=== PATIENT | female | born 1960 | race African-American/Black ===

== ENCOUNTER → 2016-09-01 | Outpatient (CLI) | payer OTHER ==
[~2016-09-01] MED LIST: AMLODIPINE BESYL5 MG PO; AZELASTINE137 MCG/0.; CELEBREX PO; CYMBALTA PO; DULOXETINE HCL60 M1 PO; ESOMEPRAZOLE MA40 MG PO; HYDROCHLOROTH12.5 MG PO; LORTAB 7.5-3251 EACH PO; MELOXICAM15 MG PO; NASACORT AQ16.5 GM; PARAFON FORTE500 M1 PO; PREVACID PO
--- NOTE | ~2016-09-01 | BD1 ---
[facility] A Service of [facility] RADIOLOGY TEXT RESULTS PATIENT: BEBETO HAIDER LOCATION: [facility] : 62 UNIT #: [id number] AGE: [address]: Sary Paige APRN SEX: F ORDER DR: [id number] [address] [id number] O MR#: [id number] Acc #: [id number] NAME: BEBETO HAIDER : 1960 SEX: F STUDY DATE/TIME: 09/01/2016 8:14 UNIT: [facility] ROOM: STUDY DESCRIPTION: Dexa Bone Dens 1+ Site Attending Physician: Sary Paige A.P.R.N. Referring Physician: Sary Paige A.P.R.N. Ordering Physician: Sary Paige A.P.R.N. Primary Care Physician: Sary Paige A.P.R.N. MEDICAL IMAGING REPORT This report is preliminary unless electronic signature is present. EXAM DXA scan, 09/01/2016 HISTORY Status post menopause with no hormone replacement therapy. Osteopenia. Arthritis. FINDINGS Bone mineral density in the lumbar spine from L1-L4 is 1.113 g/cm2 which is 0.6 standard deviations below the mean when compared to young adult reference population which is within the range of normal. This is 0.9 standard deviations below the mean when compared to the age-matched population. Bone mineral density in the left femoral neck was 0.879 g/cm2 which is 1.1 standard deviations below the mean when compared to young adult reference population which is characteristic of osteopenia. This is 0.9 standard deviations below the mean when compared to the age-matched population. Bone mineral density in the right femoral neck was 0.884 g/cm2 which is 1.1 standard deviations below the mean when compared to the young adult reference population which is characteristic of osteopenia. This is 0.8 standard deviations below the mean when compared to the age-matched population. IMPRESSION Bone mineral density in the lumbar spine within the range of normal and within the hips bilaterally characteristic of osteopenia. Dictated by... John Guillen M.D. [facility] A Service of [facility] RADIOLOGY TEXT RESULTS PATIENT: BEBETO HAIDER LOCATION: [facility] : 62 UNIT #: [id number] AGE: [address]: Sary Paige APRN SEX: F ORDER DR: THIS IS AN ELECTRONICALLY VERIFIED REPORT John Guillen M.D. at 09/01/2016 5:10 PM ARISTIDES/cely TD: 09/01/2016 11:54 JOB #: [id number] MEDICAL IMAGING REPORT Page 1 of 1
== END | disposition home or self-care (01) ==
LOC: SRAD 07:50
DX: Z13.820 Encounter for screening for osteoporosis (principal); Z78.0 Asymptomatic menopausal state
CPT/HCPCS: 77080

== ENCOUNTER → 2016-11-10 | Day surgery (SDC) | payer OTHER ==
--- NOTE | ~2016-11-10 | OR ---
Unit #: [id number] #: [id number] Patient: BEBETO HAIDER [id number] [place], [place] [address] [id number] O MR#: [id number] NAME: BEBETO HAIDER ROOM: Date of Procedure: 11/10/2016 Admission Date: 11/10/2016 Surgeon: Pedro Woodward M.D. : 1960 Attending Physician: Pedro Woodward M.D. Primary Care Physician: Sary Paige A.P.R.N. OPERATIVE REPORT JOB NOTE: VERIFY ADT PREOPERATIVE DIAGNOSES The patient has come for surveillance colonoscopy. She has a family history of colon cancer in her mother and three of her mother's brothers. PROCEDURE PERFORMED Colonoscopy up to cecum with excellent preparation and good visualization. POSTOPERATIVE DIAGNOSES Mild sigmoid and descending colon diverticulosis. Otherwise, normal examination up to cecum. The quality of the prep was excellent. No polyps were seen. RECOMMENDATIONS Repeat colonoscopy in 5 years. SEDATION USED MAC. DESCRIPTION OF PROCEDURE Following detailed explanation of potential risks and complications of a colonoscopy, namely perforation, bleeding, and complications related to sedation, the patient was brought to GI lab and laid in the left lateral decubitus position. A digital rectal examination was performed, which was normal. Lubricated tip of the Olympus video colonoscope was inserted through the anus and advanced under direct vision. The scope was advanced past rectosigmoid into descending colon. Scant small diverticula were noted in this area. The scope tip was then navigated all the way up to cecum with visualization of the ileocecal valve and the appendiceal orifice. Preparation was excellent with good visualization and photodocumentation was obtained. Last several inches of the terminal ileum were also visualized after intubation of the ileocecal valve and appeared normal. Successive segments of the colonic mucosa were examined upon withdrawal and appeared unremarkable. There being no polyps, mass lesions, or AVMs. Other than the left-sided diverticula, no other abnormalities were seen. The patient did not have any hemorrhoids at the anal verge. The scope was then withdrawn and the patient returned to the recovery area. She tolerated the procedure without any postprocedure complications. Unit #: [id number] #: [id number] Patient: BEBETO HAIDER Dictated by... Rodolfo Saleh/cari TD: 11/10/2016 11:09 JOB #: [id number] OPERATIVE REPORT Page 1 of 1 X Pedro Woodward MD X PROCEDURE OPERATIVE NOTE
== END | disposition home or self-care (01) ==
LOC: COPS 07:30
DX: Z12.11 Encounter for screening for malignant neoplasm of colon (principal); K57.30 Diverticulosis of large intestine without perforation or abscess without bleeding; F41.9 Anxiety disorder, unspecified; F32.9 Major depressive disorder, single episode, unspecified; K21.9 Gastro-esophageal reflux disease without esophagitis; E66.9 Obesity, unspecified; M19.90 Unspecified osteoarthritis, unspecified site; I10 Essential (primary) hypertension; Z68.39 Body mass index [BMI] 39.0-39.9, adult; Z98.51 Tubal ligation status; Z80.0 Family history of malignant neoplasm of digestive organs; Z89.522 Acquired absence of left knee; Z98.890 Other specified postprocedural states; Z79.1 Long term (current) use of non-steroidal anti-inflammatories (NSAID); Z79.899 Other long term (current) drug therapy; Z79.891 Long term (current) use of opiate analgesic
CPT/HCPCS: J2250